=== PATIENT | female | born 1955 | race Caucasian/White ===

== ENCOUNTER → 2016-11-28 | Outpatient (CLI) | payer BC ==
[~2016-11-28] MED LIST: ALEN70TA4 PO; CALC500C3 PO; CIPR-255 PO; CLB/200 PO; DOCU100C31 PO; FAMO20TA11 PO; FOLI1TAB7 PO; HEPA1INJ22 SQ; LISI-729 PO; METH2.5T PO; PRD/25 PO; SENN-65 PO; SODI1TAB PO
[2016-11-28 12:12] LABS: BASO % 0.3 %; BASO ABS # 0.02 K/uL (0-0.2); COMPLETE YES; EOS % 1.4 %; HEMATOCRIT 39.9 % (37-47); LYMPH % 18.5 %; LYMPH ABS # 1.08 K/uL (1.2-3.4); MEAN CELL VOLUME 88.3 fL (80-100); MEAN CORPUSCULAR HEMOGLOBIN 30.5 pg (25-34); MEAN CORPUSCULAR HGB CONC 34.6 g/dl (32-36); MEAN PLATELET VOLUME 9.9 fL (7.4-10.4); NEUT % 65.8 %; PLATELET COUNT 263 K/uL (130-400); RED BLOOD COUNT 4.52 M/uL (4.2-5.4); WHITE BLOOD COUNT 5.83 K/uL (4.8-10.8)
[2016-11-28 12:37] LABS: CALCIUM URINE 12.2 mg/dl
[2016-11-28 12:42] LABS: ALT/SGPT 30 U/L (12-78)
[2016-11-28 12:45] LABS: ALKALINE PHOSPHATASE 74 U/L (45-117); AST/SGOT 22 U/L (15-37)
[2016-11-29 17:13] LABS: ALBUMIN 3.8 G/DL (3.8-4.8); TOTAL PROTEIN 6.7 G/DL (6.2-8.3)
== END | disposition home or self-care (01) ==
LOC: C.LAB1850 11:21
PROVIDERS: ATTEND Internal Medicine Rheumatology
DX: E55.9 Vitamin D deficiency, unspecified (principal)

== ENCOUNTER → 2017-03-04 | Outpatient (CLI) | payer BC ==
--- NOTE | 2017-03-04 11:42 | DIAGNOSTIC IMAGING REPORT ---
CERVICAL SPINE MRI HISTORY: Neck pain. W/FLEXION/EXTENTION,RA, basilar INVAGINATION,MYELOP TECHNIQUE: Multiplanar multisequence MRI of the cervical spine was performed without the use of contrast. COMPARISON STUDY: Cervical spine MRI 03/07/2016. FINDINGS: There is abnormal alignment of the odontoid, unchanged. Specifically, the odontoid process projects above the foramen magnum. There is indentation upon the cervicomedullary junction without cord signal abnormality. There is no significant change in alignment during flexion or extension. Cervical cord signal and caliber are normal. No areas of marrow replacement are present. Moderate degenerative changes are noted at multiple levels. The paravertebral soft tissues are unremarkable. There is no intracanalicular mass or fluid collection. There is widening of the atlantodental interval measuring up to 3.4 mm. This is likely chronic and remains stable. This results in the moderate central canal narrowing at the C1 level. No marrow replacement or marrow edema is present. Note is again made of ventricular dilatation with apparent absence of the septum pellucidum. There is mild central canal narrowing at C3-C4, C4-C5, C5-C6 and C6-C7 due to broad-based posterior disc bulges. Dextroscoliosis of the cervical spine. Mild disc space narrowing at C4-C5, C5-C6, and C6-C7. Marrow edema within the left C4-C5 facet favors long-standing degenerative change. IMPRESSION: 1. Overall, no significant change compared to the prior study. There is again noted abnormal alignment of the odontoid and the skull base. Specifically, the odontoid process projects above the foramen magnum. 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 No significant change with flexion or extension. Indentation upon the cervicomedullary junction without cord signal abnormality. 2. Moderate degenerative changes at the C1-C2 articulation with mild widening of the atlantodental interval which is likely chronic. This remains unchanged with flexion and extension. This results in moderate central canal narrowing at the C1 level. Electronically signed by: Eliecer Bartholomew M.D. 03/04/2017 11:40 AM Dictated Date/Time: 03/04/2017 11:32 AM
== END | disposition home or self-care (01) ==
LOC: C.MRIBC 09:46
PROVIDERS: ATTEND Psychiatry & Neurology Neurology
DX: M05.79 Rheumatoid arthritis with rheumatoid factor of multiple sites without organ or systems involvement (principal); M50.10 Cervical disc disorder with radiculopathy, unspecified cervical region; Q75.8 Other specified congenital malformations of skull and face bones

== ENCOUNTER → 2017-04-17 | Outpatient (CLI) | payer BC ==
[2017-04-17 10:43] LABS: BASO % 0.2 %; BASO ABS # 0.01 K/uL (0-0.2); COMPLETE YES; EOS % 0.7 %; HEMATOCRIT 41.4 % (37-47); IG% 0.4 %; LYMPH % 18.6 %; LYMPH ABS # 0.83 K/uL (1.2-3.4); MEAN CORPUSCULAR HEMOGLOBIN 30.9 pg (25-34); MEAN CORPUSCULAR HGB CONC 33.6 g/dl (32-36); MEAN PLATELET VOLUME 9.3 fL (7.4-10.4); MONO % 8.5 %; NEUT % 71.6 %; PLATELET COUNT 252 K/uL (130-400); WHITE BLOOD COUNT 4.47 K/uL (4.8-10.8)
[2017-04-17 11:49] LABS: ALT/SGPT 32 U/L (12-78); CREATININE 0.52 mg/dl (0.60-1.20)
[2017-04-17 11:51] LABS: ALKALINE PHOSPHATASE 79 U/L (45-117); AST/SGOT 27 U/L (15-37)
== END | disposition home or self-care (01) ==
LOC: C.LAB1850 09:23
PROVIDERS: ATTEND Internal Medicine Rheumatology
DX: R06.9 Unspecified abnormalities of breathing (principal); M81.0 Age-related osteoporosis without current pathological fracture; Z79.899 Other long term (current) drug therapy

== ENCOUNTER → 2017-10-13 | Outpatient (CLI) | payer BC ==
[2017-10-13 13:06] LABS: BASO % 0.9 %; BASO ABS # 0.06 K/uL (0-0.2); COMPLETE YES; EOS % 1.8 %; HEMATOCRIT 41.4 % (37-47); IG% 0.6 %; LYMPH ABS # 1.16 K/uL (1.2-3.4); MEAN CELL VOLUME 92.4 fL (80-100); MEAN CORPUSCULAR HEMOGLOBIN 30.8 pg (25-34); MEAN CORPUSCULAR HGB CONC 33.3 g/dl (32-36); MEAN PLATELET VOLUME 9.6 fL (7.4-10.4); MONO % 11.7 %; PLATELET COUNT 261 K/uL (130-400); RED BLOOD COUNT 4.48 M/uL (4.2-5.4); WHITE BLOOD COUNT 6.84 K/uL (4.8-10.8)
[2017-10-13 13:39] LABS: ALT/SGPT 24 U/L (12-78); AST/SGOT 18 U/L (15-37); CREATININE 0.56 mg/dl (0.60-1.20)
== END | disposition home or self-care (01) ==
LOC: C.LAB1850 12:12
PROVIDERS: ATTEND Internal Medicine Rheumatology
DX: M06.9 Rheumatoid arthritis, unspecified (principal); Z79.899 Other long term (current) drug therapy

== ENCOUNTER → 2018-02-05 | Outpatient (CLI) | payer BC ==
[~2018-02-05] MED LIST changes: -FOLI1TAB7 PO; +FOLI1TAB8 PO
[2018-02-05 13:19] LABS: BASO % 0.6 %; BASO ABS # 0.04 K/uL (0-0.2); EOS % 0.9 %; EOS ABS # 0.06 K/uL (0-0.5); HEMATOCRIT 40.4 % (37-47); HEMOGLOBIN 13.7 g/dL (12.0-16.0); IG# 0.03 K/uL (0.00-0.02); LYMPH % 16.7 %; LYMPH ABS # 1.09 K/uL (1.2-3.4); MEAN CELL VOLUME 90.6 fL (80-100); MEAN CORPUSCULAR HEMOGLOBIN 30.7 pg (25-34); MEAN CORPUSCULAR HGB CONC 33.9 g/dl (32-36); MEAN PLATELET VOLUME 9.4 fL (7.4-10.4); MONO % 12.5 %; MONO ABS # 0.82 K/uL (0.11-0.59); NEUT % 68.8 %; PLATELET COUNT 289 K/uL (130-400); RED CELL DISTRIBUTION WIDTH CV 14.2 % (11.5-14.5); RED CELL DISTRIBUTION WIDTH SD 46.3 fL (36.4-46.3); WHITE BLOOD COUNT 6.54 K/uL (4.8-10.8)
[2018-02-05 15:02] LABS: ALBUMIN 3.6 gm/dl (3.4-5.0); ALT/SGPT 20 U/L (12-78); CREATININE 0.48 mg/dl (0.60-1.20)
[2018-02-05 15:05] LABS: ALKALINE PHOSPHATASE 70 U/L (45-117); AST/SGOT 19 U/L (15-37); TOTAL PROTEIN 7.4 gm/dl (6.4-8.2)
== END | disposition home or self-care (01) ==
LOC: C.LAB1850 11:56
PROVIDERS: ATTEND Internal Medicine Rheumatology
DX: M06.9 Rheumatoid arthritis, unspecified (principal); Z79.899 Other long term (current) drug therapy

== ENCOUNTER 2019-08-25 06:20 | Observation (INO) ==
--- NOTE | 2019-08-18 09:09 | Anesthesiology Consultation ---
Date of Service August 18, 2019 Assessment & Plan (1) Encounter for pre-operative examination: Chart Review Chart Review: Pending: Refer to Additional Notes / Consult section and Patient NOT seen in Pre Admission Testing Consults Requested Patient follows with neurology and has known basilar invagination. She had an MRI in May that continued to demonstrate this. I would like the most recent neurology note in order to ensure that this is something that is stable and no plans for any operative intervention. History Surgery Operation Date: 08/25/19 07:55 Proposed Procedures p Transurethral Resection Bladder Tumor - Kavya Montalvo MD Height/Weight Height: 5 ft 4 in Weight: 58.967 kg Allergies Allergy/AdvReac Type Severity Reaction Status Date / Time Penicillins Allergy Intermediate Rash Verified 08/17/19 13:38 Medications Home Medications Medication Instructions Recorded Confirmed Last Taken alendronate [Fosamax] 70 mg PO WK 08/17/19 08/17/19 Unknown calcium carbonate-vitamin D3 1 tab PO DAILY 08/17/19 08/17/19 Unknown [Calcium 600 + D(3)] celecoxib [Celebrex] 100 mg PO QPM 08/17/19 08/17/19 Unknown folic acid 1 mg PO [id number] 08/17/19 08/17/19 Unknown hydrochlorothiazide 12.5 mg PO QAM 08/17/19 08/17/19 Unknown methotrexate sodium 10 mg PO WK 08/17/19 08/17/19 Unknown prednisone 2.5 mg PO QPM 08/17/19 08/17/19 Unknown prednisone 5 mg PO QAM 08/17/19 08/17/19 Unknown Past Medical History Medical History Rheumatoid arthritis (Chronic) HTN (hypertension) (Chronic) Basilar invagination dx'd 2016. follows with neurology, Abbey Gotti ([facility]) limited range of motion side to side, able to look and down. has not had any general anesthesia since diagnosis. Chronic steroid use Degenerative disc disease Osteoarthritis Subdural hematoma hx 2016 -- resolved. no surgery. Past Surgical History Surgical History H/O ankle fusion left History of colonoscopy History of esophagogastroduodenoscopy (EGD) S/P foot surgery, left metatarsal bones were removed and placed a steel plate S/P foot surgery, right metatarsal bones were removed and placed a steel plate Status post fusion of wrist bilateral () Social History Smoking Status: Never smoker Do You Dip or Chew Tobacco: No Hx Alcohol Use: Yes Alcohol type: wine alcohol intake frequency: a few times a week Hx Substance Use: No substance use type: does not use Testing Laboratory Results Labs 08/03/2019: WBC 8.53, Hgb 13.8, hct 40.6, plt 261 Na 135, K 4.1, C 97, bicarb 22, BUN 13, creat 0.6, glucose 83 Electrocardiogram Date: 08/17/19 Findings: + NSR @ (70) nonspecific ST and T wave abnormality. Echocardiogram Date: 01/26/15 EF 55-59%. Normal LV size and function. No valvular disease. Other Testing ADDENDUM When comparing to the MRI cervical spine performed on 05/05/2018 with flexion and extension CSF flow evaluation, there is improved CSF flow on extension positioning on the current exam. There is slight improved flow along the ventral aspect of the spinal cord near the corticomedullary junction on neutral positioning. Flexion positioning is essentially unchanged from prior. Additionally, the predental interval when measured as on prior exam from April is 3 mm in neutral positioning as well as on flexion and extension. Measurement of the predental interval has limited accuracy, degraded by the degree of degenerative change at the atlantodental articulation. T2 hypointense signal anterior to the dens may either represent cortex or calcification of soft tissue. This accounts for the discrepancy in reporting measurement of the pr edental interval in the initial report versus this addendum. Electronically signed by: Travon Wooten M.D. 05/24/2019 2:16 PM ADDENDUM END MR cervical sp flex/ext CSF wo CLINICAL HISTORY: 63 years-old Female presenting with BASILAR INVAGINATION. TECHNIQUE: Multisequence, multiplanar MR imaging of the cervical spine was performed without the use of intravenous contrast. Additionally, imaging was also performed in flexion and extension positioning with assessment of CSF flow. IV contrast: None. COMPARISON: 03/15/2019. FINDINGS: Localizer images: Unremarkable. Straightening of normal cervical lordosis likely due to multilevel degenerative changes. Bodies maintain grossly normal height, alignment, and bone marrow signal intensity. Redemonstration of basilar invagination. Persistent widening of the predental interval, which measures 8 mm in neutral positioning, 8 mm in flexion, and 7 mm in extension. No significant subluxation is evident with flexion or extension. However, there is a lesser degree of mass effect of the odontoid process on the craniocervical junction of the medulla with extension than in neutral position or flexion. Greater mass effect is evident with flexion. Multilevel degenerative changes with disc osteophyte complexes at nearly every level. This results in spinal canal narrowing greatest at C4-5. There is also multilevel neural foraminal narrowing. These degenerative changes have been previously characterized. Distention of the lateral ventricles is apparent. This may in part relate to age-related volume loss though the degree is unexpected. Evaluation of CSF flow dynamics demonstrates no demonstrable CSF flow along the ventral aspect of the craniocervical junction in neutral positioning and again no flow on flexion positioning. There is however trace flow along the ventral aspect of the craniocervical junction with extension is evident though this is less than along the dorsal aspect. There is preserved flow of CSF along the ventral and dorsal aspects of the cervical spinal cord below the level of C2 though this is significantly diminished on extension positioning ventrally in the upper cervical spine and dorsally in the mid to lower cervical spine. IMPRESSION: 1. Basilar invagination with significant mass effect on the cervicomedullary junction of the spinal cord on flexion positioning and slight relief on extens ion positioning. CSF flow dynamics further support severe mass effect along the ventral craniocervical junction, which is not detectable in neutral and flexion positioning. Ventral CSF flow at the craniocervical junction on extension positioning. 2. Multilevel degenerative changes.
[~2019-08-25 06:20] MED LIST changes: -ALEN70TA4 PO; -CALC500C3 PO; +CEFAZOLIN 2000MG 2,000 MG/15 ML SYR IV SCH; -CIPR-255 PO; -CLB/200 PO; -DOCU100C31 PO; -FAMO20TA11 PO; -FOLI1TAB8 PO; -HEPA1INJ22 SQ; -LISI-729 PO; +LR 15ML/HR IV SCH; -METH2.5T PO; +MISSING PHYSICIAN SIGNATURE ON ORDER SCH; -PRD/25 PO; -SENN-65 PO; -SODI1TAB PO
--- NOTE | 2019-08-25 07:06 | History & Physical Bridge Note ---
Date of Service August 25, 2019 History & Physical Bridge Note I have examined the patient, reviewed the History & Physical and in the interval since the performance of the History & Physical I have noted the following changes of clinical significance: no changes noted
[2019-08-25] MEDS ORDERED: CEFAZOLIN 2,000 MG/15 ML IV PUSH IV ONE (07:12)
[2019-08-25] MEDS ORDERED: MIDAZOLAM HCL 1 MG/ML 2ML VIAL ONE (07:20)
[2019-08-25] MEDS ORDERED: fentaNYL citrate 100 MCG/2 ML VIAL ONE ×2 (07:21→09:11)
[2019-08-25] MEDS ORDERED: fentaNYL citrate 100 MCG/2 ML VIAL IV PRN (07:24)
[2019-08-25] MEDS ORDERED: ATROPINE SULFATE 0.1 MG/ML 10ML SYR IV PRN (07:24)
[2019-08-25] MEDS ORDERED: DEXAMETHASONE SOD INJ 4 MG/ML VIAL IV PRN (07:24)
[2019-08-25] MEDS ORDERED: PROMETHAZINE HCL 12.5 MG in SODIUM CHLORIDE 0.9% 50 ML IV PRN (07:24)
[2019-08-25] MEDS ORDERED: METOCLOPRAMIDE HCL INJ 5 MG/ML 2 ML VIAL IV PRN (07:24)
[2019-08-25] MEDS ORDERED: ePHEDrine sulfate 50 MG/ML AMP IV PRN (07:24)
[2019-08-25] MEDS ORDERED: ONDANSETRON INJ 2 MG/ML 2 ML VIAL IV PRN (07:24)
[2019-08-25] MEDS ORDERED: HYDROmorphone INJ 2 MG/ML SYR/VIAL IV PRN (07:24)
[2019-08-25] MEDS ORDERED: LIDOCAINE HCL 2% 2 ML VIAL/AMP(20MG/ML) INFIL ONE (07:50)
[2019-08-25] MEDS ORDERED: PROPOFOL IV EMULSION 10 MG/ML 20 ML VIAL IV ONE (07:50)
[2019-08-25] MEDS ORDERED: ONDANSETRON INJ 2 MG/ML 2 ML VIAL ONE (07:50)
[2019-08-25] MEDS ORDERED: ROCURONIUM BROMIDE 10 MG/ML 5 ML VIAL ONE (07:50)
[2019-08-25] MEDS ORDERED: DEXAMETHASONE SOD INJ 4 MG/ML VIAL ONE (07:50)
[2019-08-25] MEDS ORDERED: NEOSTIGMINE METHYLSULFATE 5 MG/5 ML SYR ONE (07:51)
[2019-08-25] MEDS ORDERED: GLYCOPYRROLATE 0.2 MG/ML VIAL ONE (07:51)
[2019-08-25] MEDS ORDERED: KETOROLAC 30 MG/ML VIAL ONE (07:51)
[2019-08-25] MEDS ORDERED: BELLADONNA/OPIUM SUPP 60 MG SUPP PR ONE ×2 (08:19→14:00)
[2019-08-25] MEDS ORDERED: BELLADONNA/OPIUM SUPP 60 MG SUPP PR PRN (08:23)
--- NOTE | 2019-08-25 09:37 | Operative Report ---
Post Operative Report Pre & Post Diagnosis Operation Date: 08/25/19 08:05 Pre-Op Diagnosis: Bladder Tumor Post-Op Diagnosis: Bladder Tumor I identified the patient and participated in the time-out.: Yes Procedure Operation Date: 08/25/19 08:05 Actual Procedures p Transurethral Resection Bladder Tumor(Not Applicable) - Kavya Montalvo MD Surgeon Kavya Montalvo MD Staff Certified Nurse Midwife none Estimated Blood Loss 200 Findings Consistent with Post-Op Diagnosis sessile bladder tumor, excessive bleeding Fluids 1200 Specimens bladder biopsy Drains 22 fr 3-way walsh Anesthesia Type General Complications excessive bleeding precluded complete resection of bladder tumor Disposition Accompanied Patient To Recovery: Yes Disposition: Recovery Room Indications Patient with gross hematuria and a right lateral wall bladder tumor. Description of Procedure Patient was given general ET anesthesia with a glide scope to allow for very limited cervical spine extension and placed in lithotomy position. His genitals were prepped and draped in sterile fashion. Time out held with team. I dilated her small urethral meatus with the blond obturator of the resectoscope then placed the 26 fr resectoscope. Her tumor is solid, sessile and on the right lateral wall. I used the thin loop to take a swipe of the superficial center portion of the tumor. It bled very briskly. I spent the next hour using button cautery to control the very brisk bleeding. Once controlled I took a second small swipe at the edge of the tumor and again the bleeding was excessive and took another 30 minutes to control. I will not be able to finish the resection of this bladder tumor today with the bleeding problems. I rinsed the biopsy out and sent for specimen. I left bladder full and placed a 22 fr 3-way walsh and began CBI. I placed a belladonna and opium suppository for post-op pain. She transferred to recovery under my escort, in stable condition. Plan: Run CBI for several hours in recovery room. Home today if able to stay clear off CBI Will need repeat resection in near future. ASA 3 clean contaminated case ancef antibiotic ergonomics consultant I attest to the content of the Intraoperative Record and any orders documented therein. Any exceptions are noted below.
--- NOTE | 2019-08-25 11:08 | Anesthesiology Progress Note ---
Date of Service August 25, 2019 Anesthesia Post Procedure Vital Signs Vital Signs: Temp Pulse Pulse Resp BP Pulse Ox 08/25/19 11:05 37.6 C H 84 16 140/88 98 08/25/19 10:50 37.6 C H 79 19 123/65 95 08/25/19 10:35 37.6 C H 75 14 139/84 98 08/25/19 10:25 36.4 C L 75 15 114/73 99 08/25/19 10:15 77 12 123/83 99 08/25/19 10:05 36.0 C L 85 17 148/82 H 100 08/25/19 09:55 36.0 C L 87 14 148/82 H 100 08/25/19 09:45 36.0 C L 84 13 121/92 100 08/25/19 09:37 36.0 C L 76 18 126/91 100 08/25/19 06:43 36.6 C 85 16 154/93 H 98 Transfer of Care Handoff Completed per policy Notes Mental Status: alert / awake / arousable and participated in evaluation Patient Amnestic to Procedure: Yes Nausea / Vomiting: adequately controlled Pain: adequately controlled Airway Patency, RR, SpO2: stable & adequate BP & HR: stable & adequate Hydration State: stable & adequate Anesthetic Complications: no major complications apparent
[2019-08-25] MEDS ORDERED: ACETAMINOPHEN 325 MG TAB PO PRN (14:00)
[2019-08-25] MEDS ORDERED: D5W AND 1/2NSS 1,000 ML IV SCH (15:30)
[2019-08-25] MEDS ORDERED: predniSONE 2.5 MG TAB PO SCH (21:00)
[2019-08-25] MEDS ORDERED: COUGH DROP (SUGAR FREE) LOZ 24 LOZ/1 BOX BUCCAL PRN (21:58)
[2019-08-25] MEDS: OXYCODONE HCL IR 5 MG TAB (IMMEDIATE RELEASE) PO PRN (22:03)
[2019-08-25] MEDS: INFLUENZA VACCINE HIGH DOSE 65+ 0.5 ML SYR IM ONE ×2 (22:10→22:21)
[2019-08-25] MEDS: INFLUENZA ADMINISTRATION CHARGE ONE ×2 (22:14→22:21)
--- NOTE | 2019-08-26 07:46 | Urology Progress Note ---
Date of Service August 26, 2019 Assessment & Plan (1) Gross hematuria: brisk bleeding after bladder biopsy. Did very well on CBI overnight we will move towards walsh removal this am. Hold CBI now. Increase activity to ad sandra. If in one hour urine is no bloodier than pink may d/c walsh and discharge patient If urine gets bloody again with activity over the next hour then resume the CBI. heplock the iv Present on Admission?: Yes Subjective Patient feels well. Had no urinary bleeding overnight on slow CBI. Tolerating general diet. Review of Systems Review of Systems: patient with no fever no nausea, no emesis, no chest pain, no cough, no shortness of breath. Physical Exam Physical Exam: general- awake alert pleasant. good color speaks in complete fluid sentences. oriented to person place time and situation. DU- walsh with cbi dripping slowly and clear urine. Results & Data Vital Signs (Past 12 Hours) Vital Signs Temp Pulse Pulse Resp BP Pulse Ox 08/26/19 07:27 36.7 C 65 18 142/82 H 97 08/26/19 02:42 36.9 C 61 16 114/75 94 08/25/19 23:03 36.9 C 63 16 128/81 96 08/25/19 21:26 37.0 C 63 16 101/70 97
--- NOTE | 2019-08-26 08:40 | Anesthesiology Progress Note ---
Date of Service August 26, 2019 Anesthesia Post Procedure Vital Signs Vital Signs: Temp Pulse Pulse Resp BP BP Pulse Ox 08/26/19 07:27 36.7 C 65 18 142/82 H 97 08/26/19 02:42 36.9 C 61 16 114/75 94 08/25/19 23:03 36.9 C 63 16 128/81 96 08/25/19 21:26 37.0 C 63 16 101/70 97 08/25/19 17:31 37 C 71 16 137/86 142/82 H 97 08/25/19 16:24 36.9 C 64 16 124/82 93 08/25/19 15:52 36.7 C 77 16 124/83 92 08/25/19 15:20 37.3 C 80 18 138/86 95 08/25/19 12:30 36.8 C 88 18 125/82 95 08/25/19 12:00 88 18 129/84 95 08/25/19 11:30 36.9 C 88 18 128/78 92 08/25/19 11:20 37.6 C H 88 14 120/87 95 08/25/19 11:05 37.6 C H 84 16 140/88 98 08/25/19 10:50 37.6 C H 79 19 123/65 95 08/25/19 10:35 37.6 C H 75 14 139/84 98 08/25/19 10:25 36.4 C L 75 15 114/73 99 08/25/19 10:15 77 12 123/83 99 08/25/19 10:05 36.0 C L 85 17 148/82 H 100 08/25/19 09:55 36.0 C L 87 14 148/82 H 100 08/25/19 09:45 36.0 C L 84 13 121/92 100 08/25/19 09:37 36.0 C L 76 18 126/91 100 Notes Mental Status: alert / awake / arousable and participated in evaluation Patient Amnestic to Procedure: Yes Nausea / Vomiting: adequately controlled Pain: adequately controlled Airway Patency, RR, SpO2: stable & adequate BP & HR: stable & adequate Hydration State: stable & adequate Anesthetic Complications: no major complications apparent and Pt Satisfied with anesthetic care
[2019-08-26] MEDS ORDERED: CALCIUM 600MG + VIT D 400 IU TAB PO SCH (09:00)
[2019-08-26] MEDS ORDERED: FOLIC ACID 1 MG TAB PO SCH (09:00)
[2019-08-26] MEDS ORDERED: hydroCHLOROthiazide 25 MG TAB PO SCH (09:00)
[2019-08-26] MEDS ORDERED: FERROUS SULFATE 325 MG TAB PO SCH (09:00)
[2019-08-26] MEDS ORDERED: predniSONE 5 MG TAB PO SCH (09:00)
[2019-08-26] MEDS ORDERED: DOCUSATE SODIUM 100 MG CAP PO SCH (09:00)
[2019-08-26] MEDS: OXYCODONE HCL IR 5 MG TAB (IMMEDIATE RELEASE) PO PRN (09:48)
[2019-08-26 11:50] LABS: Prothrombin Time 10.3 Seconds (9.0-12.0)
--- NOTE | 2019-08-26 13:08 | Discharge Summary ---
Date of Service August 26, 2019 Admission HPI Per Admitting Provider Patient had a cystoscopy with bladder biopsy 08/25/19 which was complicated by heavy bleeding. She had a minor clogging of the walsh catheter in recovery room so we elected to keep her overnight for cbi. The bladder irrigation ran clear with no further clogs all night. We weaned off the cbi this am and removed the walsh at 11am. Admission Exam (Per Admitting) Constitutional WD/WN, vitals as above well developed, + physical limitations, cooperative and comfortable joint changes consistent with chronic RA Respiratory normal respiratory effort, lungs clear to auscultation Cardiovascular RRR, no murmur, no edema Psychiatric A+Ox3, euthymic affect Genitourinary 22 fr 3-way walsh in place running clear irrigant. some blood around the urethral meatus. Discharge Data Procedures Performed Operation Date: 08/25/19 08:05 Actual Procedures p Transurethral Resection Bladder Tumor(Not Applicable) - Kavya Montalvo MD Hospital Course (1) Gross hematuria: brisk bleeding after bladder biopsy. Did very well on CBI overnight moved to walsh removal this am. urine light pink. Tolerated Increase activity to ad sandra. Discharge Instructions do not do any heavy lifting or pushing for 3 weeks eat leafy green vegetables daily keep bowels softer so you do not have to strain. stool softener might be needed we will call with biopsy results about mid next week.
[2019-08-29] MEDS ORDERED: ALENDRONATE SODIUM 70 MG TAB PO SCH (06:30)
[2019-08-31] MEDS ORDERED: metHOTREXate sodium 2.5 MG TAB PO SCH (09:00)
== END 2019-08-26 14:49 | disposition home or self-care (01) ==
LOC: 3N 06:20 → ASU 06:20